=== PATIENT | male | born 1960 | race Caucasian/White ===

== ENCOUNTER → 2016-10-02 | Outpatient (CLI) | payer BC | LOC: CARD 11:54 | PROVIDERS: ATTEND Internal Medicine Cardiovascular Disease | DX: I10 Essential (primary) hypertension (principal); G91.9 Hydrocephalus, unspecified; Z82.49 Family history of ischemic heart disease and other diseases of the circulatory system | CPT/HCPCS: 93306 ==

== ENCOUNTER → 2018-08-08 | Day surgery (SDC) | payer BC ==
[~2018-08-08] VITALS: Ht 180.3 cm; Wt 108.9 kg
[~2018-08-08] MED LIST: LIDOCAINE 1% INJ 20 ML 20 ML VIAL ONE
--- OUTSIDE RECORDS SUMMARY | 2018-08-08 09:01 | XMS REPORT | Continuity of Care Document ---
Author Organization Unknown Address Unknown Allergies There is no data. Medications There is no data. Problems There is no data. Procedures There is no data. Results There is no data. Encounters ACCT No. Visit Date/Time Discharge Status Pt. Type Provider Facility Loc./Unit Complaint [id number] 05/07/2016 12:41:00 05/07/2016 23:59:00 DIS Outpatient Tad Orozco [facility]
--- OUTSIDE RECORDS SUMMARY | 2018-08-08 09:01 | XMS REPORT | Referral Summary ---
Author Author [facility] Organization [facility] Address Unknown Phone Unavailable Encounter Hospital [facility] [id number] Date(s): 05/07/16 - 05/07/16 [facility] [address] [place] [id number] Discharge Disposition: 01 O/P Home Attending Physician: Tad Orozco MD Admitting Physician: Tad Orozco MD Vital Signs No data available for this section Problem List No data available for this section Allergies, Adverse Reactions, Alerts No data available for this section Medications No data available for this section Results No data available for this section Immunizations No data available for this section Procedures No data available for this section Social History No data available for this section Functional Status No data available for this section Assessment and Plan No data available for this section Hospital Discharge Instructions No data available for this section
[2018-08-08 09:45] VITALS: BP 155/85
--- NOTE | 2018-08-08 10:03 | Implantation of Loop Monitor ---
Implant of Loop Monitior IMPLANTATION OF LOOP MONITOR REPORT DATE OF PROCEDURE: 08/08/18 PREOP DIAGNOSIS: Syncope, Bradycardia POSTOP DIAGNOSIS: Syncope, Bradycardia PROCEDURE DETAILS: The patient is a 58 male with history of paroxysmal atrial fibrillation requiring long-term surveillance. Therefore implantable loop recorder was discussed and agreed with the patient. Informed consent was taken. All risks and complications were discussed at length. The patient was draped and prepped in the usual sterile fashion. Local anesthesia was lidocaine, which was given in the substernal area close to the 4th intercostal space. Loop monitor was implanted according to the protocol. Steri-Strips were placed at the end of the procedure. There were no complications and the patient tolerated the procedure well. The device was interrogated with a voltage of. ANESTHESIA: Local anesthesia with lidocaine. COMPLICATIONS: None CONTRAST/FLUOROSCOPY: None CONCLUSION: Successful loop recorder implanted with no complication FINAL DIAGNOSIS: Syncope Dizziness Sinus node dysfunction Bradycardia TELMA PETER MD Aug 08, 2018 10:03
== END | disposition home or self-care (01) ==
LOC: CATH 08:58
PROVIDERS: ATTEND Internal Medicine Cardiovascular Disease
DX: I49.5 Sick sinus syndrome (principal); R55 Syncope and collapse; R42 Dizziness and giddiness; I10 Essential (primary) hypertension; G91.9 Hydrocephalus, unspecified; E66.9 Obesity, unspecified; Z68.35 Body mass index [BMI] 35.0-35.9, adult; Z82.49 Family history of ischemic heart disease and other diseases of the circulatory system; Z79.82 Long term (current) use of aspirin; Z79.899 Other long term (current) drug therapy; Z87.891 Personal history of nicotine dependence
CPT/HCPCS: 33285

== ENCOUNTER → 2019-10-16 | Outpatient (CLI) | payer OTHER, BC ==
--- NOTE | 2019-10-16 14:26 | Diagnostic Imaging Report ---
INDICATION: Lumbar injury AP and lateral views of the lumbar spine are obtained. Lumbar spinal curvature and alignment are unremarkable. Vertebral body heights and disc spaces are maintained. There is mild marginal spurring of the endplates and mild sclerosis at the L5-S1 facet joints. IMPRESSION: No acute abnormality identified. There is mild diffuse degenerative disc disease and L5-S1 degenerative facet arthropathy. Dictated by: Dictated on workstation # [id number]
== END ==
LOC: RAD FS 13:59
PROVIDERS: ATTEND Family Medicine
DX: M51.37 Other intervertebral disc degeneration, lumbosacral region (principal); M47.817 Spondylosis without myelopathy or radiculopathy, lumbosacral region
CPT/HCPCS: 72100

== ENCOUNTER 2023-03-05 19:24 | Emergency (ER) | payer MEDICARE, OTHER ==
[~2023-03-05] VITALS: Ht 180.3 cm; Wt 115.7 kg
--- NOTE | 2023-03-05 20:00 | ED Cough/URI ---
General Chief Complaint: COVID19 Suspect/Confirmed Stated Complaint: FEVER, COVID + WITH HOME TEST Nursing Triage Note: PT AMB TO RM 9 W C/O BURGESS, FEVER, NASAL DRAINAGE, AND BODY ACHES SX 1200 TODAY. PT REPORTS HE TESTED COVID + AT HOME, TOOK TYLENOL AT 1900 THIS PM FOR FEVER. PT A&OX4. Source: patient Exam Limitations: no limitations History of Present Illness Date Seen by Provider: Mar 05, 2023 Time Seen by Provider: 20:03 Initial Comments Patient is a 62-year-old male who presents to the ED for flulike symptoms. Symptoms started around 12:00. Bodyaches chills weakness fatigue nasal drainage and fever. Denies any cough vomiting or diarrhea, chest pain or shortness of breath. Had a temperature of 105 right before arrival. Took 2 Tylenol. On arrival afebrile. Patient has received his COVID vaccines. Patient was concern for the elevated temperature at home. Does have a history of communicating hydrocephalus. Patient appears in no acute respiratory distress. Patient states he cannot take Motrin. Patient denies any neck pain, headache, dizzines s, visual changes, pain with urination, abdominal pain. Allergies and Home Medications Allergies Coded Allergies: naproxen (Verified Adverse Reaction, Mild, HEADACHE, 03/05/23) Patient Home Medication List Home Medication List Reviewed: Yes Review of Systems Review of Systems Constitutional: chills; No diaphoresis; fever, malaise, weakness EENTM: No ear pain Respiratory: No cough, No dyspnea on exertion Cardiovascular: No chest pain Gastrointestinal: No abdominal pain, No diarrhea, No nausea, No vomiting Genitourinary: No decreased output, No discharge, No dysuria, No frequency Musculoskeletal: No back pain, No joint pain All Other Systems Reviewed Negative Unless Noted: Yes Past Vldhbst-Wjzich-Byikmw Hx Patient Social History Tobacco Use?: No Use of E-Cig and/or Vaping dev: No Substance use?: No Alcohol Use?: Yes Alcohol Frequency: Once in a while Past Medical History Tonsillectomy Respiratory: No Cardiac: Yes Hypertension Neurological: Yes Concussion Genitourinary: No Gastrointestinal: Yes Gastroesophageal Reflux Cancer: No Blood Disorders: No Adverse Reaction/Blood Tranf: No Physical Exam Vital Signs - First Documented Capillary Refill : Less Than 3 Seconds Height: 5'11.00" Weight: 240lbs. 0.0oz. 108.431635el; 35.00 BMI Method: General Appearance: WD/WN, no apparent distress Eyes: Bilateral Eye Normal Inspection, Bilateral Eye PERRL, Bilateral Eye EOMI HEENT: PERRL/EOMI, normal ENT inspection, TMs normal, pharynx normal Neck: non-tender, full range of motion, supple Respiratory: chest non-tender, lungs clear, normal breath sounds, no respiratory distress, no accessory muscle use Cardiovascular: regular rate, rhythm, no edema, no gallop, no JVD Gastrointestinal: normal bowel sounds, non tender, soft, no organomegaly Extremities: normal range of motion, non-tender, normal inspection, no pedal edema 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, no motor/sensory deficits, alert, normal mood/affect, oriented x 3 Skin: normal color, warm/dry Progress/Results/Core Measures Suspected Sepsis SIRS Temperature: Pulse: 108 Respiratory Rate: 20 Blood Pressure 190 /82 Mean: 118 Results/Orders My Orders Orders - ANGEL MELGAR Covid 19 Inhouse Test (03/05/23 19:39) Influenza A And B By Pcr (03/05/23 19:39) Vital Signs/I&O 03/05/23 03/05/23 03/05/23 19:40 19:40 20:05 Temp 37.7 37.6 Pulse 108 107 Resp 20 18 B/P (MAP) 190/82 (118) 150/82 Pulse Ox 96 96 O2 Delivery Room Air Room Air Room Air Capillary Refill : Less Than 3 Seconds Blood Pressure Mean: 118 Departure Communication (PCP) Patient tested positive for COVID today at home test. Symptoms started this afternoon. He was concerned for an elevated temperature 105 at home. On arrival 37.7 C. Did take Tylenol before arrival. Denies history of coronary artery disease COPD diabetes cancer or immunocompromise. Discussed with patient since he tested positive for COVID at home there is a good chance that he is positive. Does not want a swab at this time to verify. I did offer Paxlovid but patient does not want to proceed. He does not appear toxic. Slightly tachycardic. Patient denies any chest pain abdominal pain vomiting or diarrhea short of breath headache dizziness. Does have some bodyaches chills and weakness and fever. At this time patient was requesting to go home. He states his thermometer may have been wrong however he does not want any further workup at this time. I discussed with patient continue with Tylenol or ibuprofen. Recommend staying hydrated. If any worsening symptoms such as chest pain short of breath unable to eat or drink decreased urine output to return back to ED. Discussed wearing a mask for 5 days and to isolate. May return back to work if asymptomatic but recommend wearing a mask for additional 5 days. Impression Primary Impression: COVID-19 Disposition: 01 HOME, SELF-CARE Condition: Stable Departure-Patient Inst. Decision time for Depature: 19:59 Referrals: SELF,LUIS ALBERTO GALINDO (PCP/Family) Primary Care Physician Patient Instructions: COVID-19 (DC) Add. Discharge Instructions: Recommend staying hydrated. Recommend continue wearing a mask for additional 5 days. If any worsening symptoms such as developing chest pain shortness of breath return back to ED. Continue with your Tylenol for fever. All discharge instructions reviewed with patient and/or family. Voiced understanding. ANGEL MELGAR Mar 05, 2023 19:59
[2023-03-05 20:05] VITALS: BP 150/82
== END 2023-03-05 20:05 | disposition home or self-care (01) ==
LOC: EDUNIT# 19:24 → ER 19:29
DX: U07.1 COVID-19 (principal); R50.9 Fever, unspecified; R53.81 Other malaise; R53.1 Weakness; R00.0 Tachycardia, unspecified
CPT/HCPCS: 99281